=== PATIENT | male | born 1990 | race Caucasian/White ===

== ENCOUNTER 2021-09-13 21:16 | Emergency (ER) | payer OTHER ==
[~2021-09-13 21:16] MED LIST: COLACE 100MG C100 MG PO; LORTAB 7.5-3251 EACH PO; NORVASC 5 MG TAB5 MG PO
[2021-09-13] MEDS ORDERED: CLEOCIN HCL300 MG PO (22:21)
== END 2021-09-13 22:28 | disposition home or self-care (01) ==
LOC: ER1 21:16
DX: S50.352A Superficial foreign body of left elbow, initial encounter (principal); I10 Essential (primary) hypertension; Z88.0 Allergy status to penicillin; Z23 Encounter for immunization; W45.8XXA Other foreign body or object entering through skin, initial encounter; Y92.009 Unspecified place in unspecified non-institutional (private) residence as the place of occurrence of the external cause
CPT/HCPCS: 73080; 90471; 90715; 99283